=== PATIENT | female | born 1950 | race Two or more races ===

== ENCOUNTER 2017-09-24 10:47 | Emergency (ER) | payer OTHER ==
[~2017-09-24] VITALS: Ht 160 cm; Wt 82.6 kg
[~2017-09-24 10:47] MED LIST: AMLODIPINE BES2.5 MG; BAYER CHILDREN'81 MG; CRESTOR20 MG; DICYCLOMINE HCL10 MG; DOXAZOSIN MESYLA2 MG; LOSARTAN-HCTZ1 EAC1; NORVASC2.5 M1; PRAVASTATIN SOD40 MG
[2017-09-24] MEDS ORDERED: LEVSIN/SL0.125 MG PO (13:38)
[2017-09-24] MEDS ORDERED: METFORMIN HCL500 MG PO (13:38)
[2017-09-24] MEDS ORDERED: PROTONIX40 MG PO (13:38)
== END 2017-09-24 13:48 | disposition home or self-care (01) ==
LOC: ER 10:47
DX: K29.00 Acute gastritis without bleeding (principal)

== ENCOUNTER 2017-10-01 08:50 | Outpatient (CLI) | payer OTHER ==
[~2017-10-01 08:50] MED LIST changes: +LEVSIN/SL0.125 MG PO; +METFORMIN HCL500 MG PO; +PROTONIX40 MG PO
== END 2017-10-01 08:51 | disposition home or self-care (01) ==
LOC: SONOGRAMA 08:50
DX: R10.84 Generalized abdominal pain (principal)

== ENCOUNTER 2018-02-11 08:16 | Outpatient (CLI) | payer OTHER | END 2018-02-11 08:29 | disposition home or self-care (01) | LOC: MAMO-SONO 08:16 | DX: Z12.31 Encounter for screening mammogram for malignant neoplasm of breast (principal); Z12.39 Encounter for other screening for malignant neoplasm of breast ==

== ENCOUNTER 2018-03-31 08:07 | Outpatient (CLI) | payer OTHER | END 2018-03-31 08:09 | disposition home or self-care (01) | LOC: SONOGRAMA 08:07 → MAMO-SONO 08:15 | DX: N18.3 Chronic kidney disease, stage 3 (moderate) (principal); R10.84 Generalized abdominal pain; R31.9 Hematuria, unspecified ==

== ENCOUNTER 2018-07-05 10:23 | Emergency (ER) | payer OTHER ==
[~2018-07-05] VITALS: Ht 160 cm; Wt 81.6 kg
== END 2018-07-05 13:34 | disposition home or self-care (01) ==
LOC: ER 10:23
DX: R00.2 Palpitations (principal)

== ENCOUNTER → 2019-03-07 | Outpatient (CLI) | payer OTHER | END | disposition home or self-care (01) | LOC: RAD 09:31 | DX: I15.8 Other secondary hypertension (principal); I10 Essential (primary) hypertension ==

== ENCOUNTER 2019-05-27 13:03 | Emergency (ER) | payer OTHER ==
[~2019-05-27] VITALS: Ht 160 cm; Wt 75.3 kg
[2019-05-27] MEDS ORDERED: METFORMIN HCL500 M3 PO (14:09)
[2019-05-27] MEDS ORDERED: CRESTOR20 MG PO (14:09)
[2019-05-27] MEDS ORDERED: BENTYL10 MG/1 ML IM (14:10)
[2019-05-27] MEDS ORDERED: ACID REDUCER20 M1 PO (14:10)
[2019-05-27] MEDS ORDERED: ASPIR 8181 MG PO (14:10)
[2019-05-27] MEDS ORDERED: ATACAND32 MG PO (14:11)
[2019-05-27] MEDS ORDERED: DECADRON0.5 MG PO (14:12)
== END 2019-05-27 16:00 | disposition home or self-care (01) ==
LOC: ER 13:03
DX: G43.909 Migraine, unspecified, not intractable, without status migrainosus (principal)

== ENCOUNTER 2019-11-01 12:55 | Emergency (ER) | payer OTHER ==
[~2019-11-01] VITALS: Ht 167.6 cm; Wt 81.6 kg
[~2019-11-01 12:55] MED LIST changes: +ACID REDUCER20 M1 PO; +ASPIR 8181 MG PO; +ATACAND32 MG PO; +BENTYL10 MG/1 ML IM; +CRESTOR20 MG PO; +DECADRON0.5 MG PO; +METFORMIN HCL500 M3 PO
== END 2019-11-01 15:26 | disposition home or self-care (01) ==
LOC: ER 12:55
DX: S00.03XA Contusion of scalp, initial encounter (principal); W18.39XA Other fall on same level, initial encounter; Y93.89 Activity, other specified; Y92.89 Other specified places as the place of occurrence of the external cause; Y99.8 Other external cause status

== ENCOUNTER 2020-07-04 10:06 | Outpatient (CLI) | payer OTHER | END 2020-07-04 10:28 | disposition home or self-care (01) | LOC: RAD 10:06 | PROVIDERS: ATTEND Specialist | DX: J45.998 Other asthma (principal) ==

== ENCOUNTER 2020-07-26 10:56 | Emergency (ER) | payer OTHER ==
[~2020-07-26] VITALS: Ht 160 cm; Wt 79.4 kg
== END 2020-07-26 14:05 | disposition home or self-care (01) ==
LOC: ER 10:56
DX: J45.998 Other asthma (principal); Z03.818 Encounter for observation for suspected exposure to other biological agents ruled out

== ENCOUNTER 2020-10-22 09:06 | Outpatient (CLI) | payer OTHER | END 2020-10-22 09:15 | disposition home or self-care (01) | LOC: MAMO-SONO 09:06 | PROVIDERS: ATTEND Specialist | DX: Z12.31 Encounter for screening mammogram for malignant neoplasm of breast (principal); M60.10 Interstitial myositis of unspecified site ==

== ENCOUNTER 2021-02-26 13:08 | Outpatient (CLI) | payer OTHER | END 2021-02-26 13:15 | disposition home or self-care (01) | LOC: RAD 13:08 | DX: I10 Essential (primary) hypertension (principal); R07.89 Other chest pain; I15.8 Other secondary hypertension ==

== ENCOUNTER 2021-05-28 11:48 | Emergency (ER) | payer OTHER ==
[~2021-05-28] VITALS: Ht 160 cm; Wt 80.7 kg
[2021-05-28] MEDS ORDERED: CRESTOR40 MG (12:46)
[2021-05-28] MEDS ORDERED: DICLOFENAC POTA50 MG PO (14:31)
[2021-05-28] MEDS ORDERED: ORPHENADRINE C100 MG PO (14:31)
== END 2021-05-28 14:39 | disposition home or self-care (01) ==
LOC: ER 11:48
DX: S33.5XXA Sprain of ligaments of lumbar spine, initial encounter (principal); X50.0XXA Overexertion from strenuous movement or load, initial encounter; Y93.F2 Activity, caregiving, lifting; Y92.018 Other place in single-family (private) house as the place of occurrence of the external cause; Y99.8 Other external cause status

== ENCOUNTER 2022-02-25 11:03 | Emergency (ER) | payer OTHER ==
[~2022-02-25] VITALS: Ht 160 cm; Wt 80.7 kg
[~2022-02-25 11:03] MED LIST changes: +CRESTOR40 MG; +DICLOFENAC POTA50 MG PO; +ORPHENADRINE C100 MG PO
== END 2022-02-25 13:32 | disposition home or self-care (01) ==
LOC: ER 11:03
DX: M54.32 Sciatica, left side (principal)

== ENCOUNTER 2022-05-20 10:12 | Outpatient (CLI) | payer OTHER | END 2022-05-20 10:17 | disposition home or self-care (01) | LOC: RAD 10:12 | PROVIDERS: ATTEND Specialist | DX: J45.998 Other asthma (principal) ==

== ENCOUNTER 2022-09-16 08:57 | Outpatient (CLI) | payer OTHER | END 2022-09-16 09:05 | disposition home or self-care (01) | LOC: SONOGRAMA 08:57 | PROVIDERS: ATTEND Internal Medicine Gastroenterology | DX: R10.9 Unspecified abdominal pain (principal) ==

== ENCOUNTER 2022-10-08 10:58 | Emergency (ER) | payer OTHER ==
[~2022-10-08] VITALS: Ht 160 cm; Wt 78.5 kg
[2022-10-08] MEDS ORDERED: DICY20TA PO (13:42)
== END 2022-10-08 13:50 | disposition home or self-care (01) ==
LOC: ER 10:58
DX: R14.0 Abdominal distension (gaseous) (principal); R12 Heartburn; E11.9 Type 2 diabetes mellitus without complications; Z79.84 Long term (current) use of oral hypoglycemic drugs; I10 Essential (primary) hypertension

== ENCOUNTER 2023-03-03 09:37 | Outpatient (CLI) | payer OTHER ==
[~2023-03-03 09:37] MED LIST changes: +DICY20TA PO
== END 2023-03-03 09:41 | disposition home or self-care (01) ==
LOC: RAD 09:37
PROVIDERS: ATTEND Physical Medicine & Rehabilitation
DX: M25.512 Pain in left shoulder (principal)

== ENCOUNTER 2023-06-15 14:01 | Emergency (ER) | payer OTHER ==
[~2023-06-15] VITALS: Ht 160 cm; Wt 81.6 kg
[2023-06-15] MEDS ORDERED: ZETIA10 MG (14:24)
== END 2023-06-15 17:10 | disposition home or self-care (01) ==
LOC: ER 14:01
DX: G43.809 Other migraine, not intractable, without status migrainosus (principal); E11.9 Type 2 diabetes mellitus without complications; Z79.84 Long term (current) use of oral hypoglycemic drugs; I10 Essential (primary) hypertension; E78.00 Pure hypercholesterolemia, unspecified; K29.70 Gastritis, unspecified, without bleeding

== ENCOUNTER 2023-07-07 09:44 | Outpatient (CLI) | payer OTHER ==
[~2023-07-07 09:44] MED LIST changes: +ZETIA10 MG
== END 2023-07-07 09:48 | disposition home or self-care (01) ==
LOC: RAD 09:44
PROVIDERS: ATTEND Specialist
DX: J45.991 Cough variant asthma (principal)

== ENCOUNTER 2024-05-24 13:40 | Outpatient (CLI) | payer OTHER | END 2024-05-24 13:46 | disposition home or self-care (01) | LOC: TOM 13:40 | PROVIDERS: ATTEND Specialist | DX: J47.9 Bronchiectasis, uncomplicated (principal) ==

== ENCOUNTER 2024-12-22 00:44 | Inpatient (IN) | payer OTHER ==
[~2024-12-22] VITALS: Ht 162.6 cm; Wt 61.2 kg
--- NOTE | 2024-12-22 01:26 | NUR ---
PACIENTE ALERTA Y ORIENTADO X3 LA MISMA REFIERE MAREOS Y PRESENTA LASERACION EN CONOR. S/V PRESION BAJA. PACIENTE EN SIDDHARTHA CON BARANDAS ELEVADAS EN ESPERA DE EVALUACION MEDICA.
[2024-12-22] MEDS ORDERED: TETANUS & DIPHTHERIA TOX,ADULT 0.5 ML VIAL IM STA (02:51)
--- NOTE | 2024-12-22 03:02 | NUR ---
PTE ALERTA Y ORIENTADA X3. SE REALIZAN MUESTRAS DE LAB SAKINA ORDEN MEDICA BAJO MEDIDAS ASEPTICAS. SE REALIZA VENOPUNCION, AREA PATENTE. SE ADMINISTRA MEDICAMENTO SAKINA ORDEN MEDICA Y BAJO MEDIDAS ASEPTICAS POR RN ILIANA. SE NOTIFICA ESTUDIOS PENDIENTES, SE PREPARA PTE PARA SUTURAR POR DEJON BARRIENTOS.
[2024-12-22 03:33] LABS: BASO % 0.0 % (0.1-1.2); EOS # 0.01 (0.04-0.54); EOS % 0.1 % (0.7-7.0); LYMPH # 0.62 (1.18-3.74); LYMPH % 8.6 % (19.3-53.1); MEAN PLATELET VOLUME 9.80 fl (9.4-12.4); MONO # 0.68 (0.24-0.82); MONO % 9.5 % (4.7-12.5); NEUT # 5.85 (1.56-6.13); NEUT % 81.4 % (34.0-71.1); RED CELL DISTRIBUTION WIDTH 15.3 % (11.6-14.4)
[2024-12-22 03:51] LABS: ALT/SGPT 31.0 U/L (12-78); AST/SGOT 28.0 U/L (15-37); BILIRUBIN TOTAL 0.55 mg/dL (0.3-1.2); BUN CREA RATIO 20.0 (7.0-25.0); CREATININE SERUM 0.91 mg/dL (0.55-1.02); GFR 60.26; GLOBULINA 3.4 G/DL (2.4-3.5); GLUCOSE FASTING 118.0 mg/dL (65-100); OSMOLALITY SERUM 249.0 MOSM/KG (275-295)
[2024-12-22] MEDS ORDERED: 0.9 % SODIUM CHLORIDE 1,000 ML IV ONE (04:15)
--- NOTE | 2024-12-22 08:14 | NUR ---
SE RECIBE PTE ALERTA Y ORIENTADA X3. EN SIDDHARTHA BAJA CON BARANDAS ELEVADAS POR SEGURIDAD. CANULA NASAL A 3LT/MIN. HL PATENTE, BHASKAR DE EDEMA Y ERITEMA, RECIBIENDO IV FLUIDS. PEND CONSULTA CON DR. GAUTAM MERRITT
[2024-12-22 08:20] LABS: URINE APPEARANCE Clear; URINE BILIRRUBIN Negative (NEGATIVE); URINE BLOOD Negative; URINE COLOR Yellow; URINE GLUCOSE Negative (NEGATIVE); URINE KETONE Trace (NEGATIVE); URINE LEUKOCYTE Trace; URINE NITRATE Negative; URINE PROTEIN Negative (NEGATIVE); URINE UROBILINOGEN 0.2 E.U./dl
[2024-12-22 08:25] LABS: URINE BACTERIA 178.7 uL (0.0-1933); URINE CAST 1.61 uL (0.0-1.40); URINE EPITHELIAL CELLS 16.7 uL (0.0-38.8); URINE RBC 2.1 uL (0.0-20.8); URINE WBC 5.8 uL (0.0-23.2)
[2024-12-22] MEDS ORDERED: 0.9 % SODIUM CHLORIDE 1,000 ML IV STA (09:46)
[2024-12-22] MEDS ORDERED: KETOROLAC TROMETHAMINE 30 MG VIAL IV ONE (13:00)
[2024-12-22] MEDS ORDERED: 0.9 % SODIUM CHLORIDE 1,000 ML IV SCH (17:15)
[2024-12-22] MEDS ORDERED: DEXTROSE 50 % IN WATER 0.5 G/ML DISP.SYRIN IV PRN (17:30)
[2024-12-22] MEDS ORDERED: INSULIN LISPRO 1,000 UNIT/10 ML UNITS SUBCUTANEO PRN (17:30)
[2024-12-22] MEDS ORDERED: ACETAMINOPHEN 500 MG GEL..CAP PO PRN (17:30)
[2024-12-22 18:05] VITALS: BP 148/72
[2024-12-22 18:27] LABS: INR 1.07
[2024-12-23 02:49] VITALS: BP 153/61
[2024-12-23 08:07] VITALS: BP 168/74; O2SAT 99
[2024-12-23] MEDS ORDERED: FAMOTIDINE/PF 20 MG in 0.9 % SODIUM CHLORIDE 8 ML IV PUSH SCH ×2 (09:00→17:00)
[2024-12-23] MEDS ORDERED: METOPROLOL SUCCINATE 50 MG TAB.SR.24H PO SCH (09:00)
[2024-12-23] MEDS ORDERED: ROSUVASTATIN CALCIUM 20 MG TABLET PO SCH (09:00)
[2024-12-23] MEDS ORDERED: CANDESARTAN CILEXETIL 32 MG TABLET PO SCH (09:00)
[2024-12-23 13:58] LABS: BUN CREA RATIO 12.0 (7.0-25.0); CREATININE SERUM 0.67 mg/dL (0.55-1.02); GFR 85.8; GLUCOSE FASTING 141.0 mg/dL (65-100); OSMOLALITY SERUM 273.0 MOSM/KG (275-295)
[2024-12-23] MEDS ORDERED: DOXAZOSIN MESYLATE 4 MG TABLET PO SCH (17:00)
[2024-12-23 17:13] VITALS: BP 132/60
[2024-12-23] MEDS ORDERED: SODIUM CHLORIDE 0.45 % 1,000 ML IV SCH (17:30)
[2024-12-24 01:36] VITALS: BP 118/57; O2SAT 100
[2024-12-24 08:49] LABS: BUN CREA RATIO 16.0 (7.0-25.0); CREATININE SERUM 0.61 mg/dL (0.55-1.02); GFR 95.61; GLUCOSE FASTING 90.0 mg/dL (65-100); OSMOLALITY SERUM 272.0 MOSM/KG (275-295)
[2024-12-24 09:20] VITALS: BP 116/72
== END 2024-12-24 14:17 | disposition home or self-care (01) | DRG 641 ==
LOC: ER 00:44 → MEDI 17:33
PROVIDERS: General Practice; Internal Medicine Nephrology; ADMIT Specialist; ATTEND Specialist
PROC: B246ZZZ Ultrasonography of Right and Left Heart (ICD-10-PCS; 2024-12-22)
PROC: B020ZZZ Computerized Tomography (CT Scan) of Brain (ICD-10-PCS; 2024-12-22)
PROC: B345ZZZ Ultrasonography of Bilateral Common Carotid Arteries (ICD-10-PCS; 2024-12-22)
PROC: B348ZZZ Ultrasonography of Bilateral Internal Carotid Arteries (ICD-10-PCS; 2024-12-22)
PROC: 4A12X4Z Monitoring of Cardiac Electrical Activity, External Approach (ICD-10-PCS; principal; 2024-12-23)
DX: E87.1 Hypo-osmolality and hyponatremia (principal); I95.9 Hypotension, unspecified; R55 Syncope and collapse; I65.23 Occlusion and stenosis of bilateral carotid arteries; I10 Essential (primary) hypertension; E11.9 Type 2 diabetes mellitus without complications; E78.5 Hyperlipidemia, unspecified; Z79.84 Long term (current) use of oral hypoglycemic drugs; Z87.891 Personal history of nicotine dependence

== ENCOUNTER → 2025-01-01 | Emergency (ER) | payer OTHER ==
[~2025-01-01] VITALS: Ht 162.6 cm; Wt 59.0 kg
== END | disposition home or self-care (01) ==
LOC: ER 11:50
DX: Z48.02 Encounter for removal of sutures (principal)